=== PATIENT | female | born 2000 | race Two or more races ===

== ENCOUNTER 2024-07-21 00:52 | Emergency (ER) | payer SELFPAY ==
[2024-07-21 00:53] VITALS: BMI 22.5
[2024-07-21 01:02] VITALS: BP 109/66; PULSE 118; RESP 18; TEMP 37.7; O2SAT 99
--- NOTE | 2024-07-21 01:06 | PD.EDURI ---
Upper Respiratory Inf. RME/HPI General Chief Complaint: Flu Like Symptoms Stated Complaint: FLU LIKE SYMPTOMS, 18 WKS OB Time Seen by Provider: 07/21/24 00:57 Arrival date/time: 07/21/24 00:52 24 year old female present to emergency room with c/o of headache, sore throat, cough for 1 day. patient is currently 18 weeks , denies any vag bleeding, abd/back pain or UTI sx. Taken tylenol prior to arrival LOCATION: posterior oral pharynx SEVERITY: Symptoms are described as being severe with limitations on activities of daily living QUALITY: Symptoms are described as being dull or achy CONTEXT: The patient is unable to identify any inciting events. DURATION/TIMING: The symptoms started approximately one day ago and have been constant this then. ASSOCIATED SYMPTOMS: The patient is unable to identify any other associated symptoms. MODIFYING FACTORS: worse with swallowing PERTINENT ROS: denies any food or liquids getting stuck, denies any generalized weakness, denies any trauma, no chest pain, no abdominal pain, no rashes, no joint swelling no dysuria, urgency,frequency, REVIEW OF SYSTEMS: See History of Present Illness - with the exception of those mentioned in the history of present illness, all other systems reviewed and reported as negative GENERAL: In general the patient is awake, interactive, in an emergency department gurney. HEAD/EYES/EARS/NOSE/THROAT: normo-cephalic, atraumatic, mucus membranes are moist, anicteric, palpebral conjunctiva is pink, trachea is midline. CARDIOVASCULAR: regular rate and regular rhythm, no murmurs, heart sounds are not distant, strong pulses in all four extremities that are equal and symmetric bilateral upper and lower extremities, normal capillary refill. CHEST/PULMONARY: normal chest rise and fall, good air movement, clear to auscultation bilaterally, normal inspiratory to expiratory ratios without evidence of respiratory distress. NECK: No midline/Paraspinal tenderness, no step off ROM/Strenght intact No Kernig and bruzinski sign. No trauma ABDOMEN: soft, not tender, no masses appreciated BACK: normal range of motion without pain. NEUROLOGICAL: cranio-facial features are symmetric, moves all four extremities equally without obvious limitations or weakness. EXTREMITY: no tenderness to palpation over the long bones or large joints of the bilateral upper and lower extremities, no joint swelling, no joint erythema, no signs of trauma, no unilateral leg swelling and no peripheral edema. SKIN: warm, dry, well-perfused, no jaundice, no rash, no telangiectasias or petechia. PSYCH: calm, cooperative, no evidence of psychosis or agitation Related Data Previous Rx's ?Medication ?Instructions ?Recorded metoclopramide HCl 10 mg tablet 10 mg PO Q6H PRN nausea and 07/21/24 (Reglan) vomiting #30 tabs Allergies Allergy/AdvReac Type Severity Reaction Status Date / Time No Known Allergies Allergy Verified 07/21/24 00:57 Course Quality Measures none Orders Category Date Time Status Bedside COVID-19 Antigen Test NOW Care 07/21/24 01:05 Active Bedside Influenza A&B Antigen Test NOW Care 07/21/24 01:05 Completed IV [Insert IV] STAT Care 07/21/24 02:13 Active Throat Culture Stat Lab 07/21/24 01:09 Received Metoclopramide Inj [Reglan Inj] Med 07/21/24 02:00 Discontinued 10 mg IM X1 ONE Metoclopramide Inj [Reglan Inj] Med 07/21/24 02:03 Discontinued 10 mg IVP X1 ONE Metoclopramide [Reglan] Med 07/21/24 02:01 Discontinued 10 mg PO X1 ONE Sodium Chloride 0.9% 1000 ml [Ns] 1,000 ml Med 07/21/24 02:03 Discontinued IV 999 mls/hr Vital Signs Vital signs: Vital Signs Temperature 99.9 F 07/21/24 01:02 Pulse Rate 118 H 07/21/24 01:02 Respiratory Rate 18 07/21/24 01:02 Blood Pressure 109/66 07/21/24 01:02 Pulse Oximetry (%) 99 07/21/24 01:02 Oxygen Delivery Method Room Air 07/21/24 01:02 Upper Respiratory Infection Patient data External records reviewed:: [facility] previous records Clinical information provided by:: patient Social determinants that could affect healthcare access:: none Patient has the following chronic illnesses:: How is presenting disease/condition affected by chronic disease/condition?: exacerbated by Evaluation data The following diagnostics were reviewed and interpreted by me:: lab results Lab and/or radiology exams considered but not ordered:: n/a Interpretation Summary: flu/covid negative strep pending Medications / Prescriptions Medications or Prescriptions considered but not ordered:: n/a Medication administrations:: Medication Administration History Discontinued Medications Sodium Chloride (Ns) 1,000 mls @ 999 mls/hr IV .Q1H1M ONE Stop: 07/21/24 03:03 Last Infusion: 07/21/24 03:35 Dose: Infused Documented By: Admin: 07/21/24 02:27 Dose: 999 mls/hr Documented By: CVL Metoclopramide HCl (Metoclopramide Inj 5 Mg/Ml Vial 2 Ml) 10 mg IM X1 ONE; Protocol Stop: 07/21/24 02:01 Last Admin: 07/21/24 02:32 Dose: Not Given Documented By: CVL Non-Admin Reason: Cancelled by Provider Metoclopramide HCl (Metoclopramide 5 Mg Tablet) 10 mg PO X1 ONE Stop: 07/21/24 02:02 Last Admin: 07/21/24 02:32 Dose: Not Given Documented By: CVL Non-Admin Reason: Cancelled by Provider Metoclopramide HCl (Metoclopramide Inj 5 Mg/Ml Vial 2 Ml) 10 mg IVP X1 ONE; Protocol Stop: 07/21/24 02:04 Last Admin: 07/21/24 02:30 Dose: 10 mg Documented By: CVL as stated above Consultations Consultation(s) initiated? (list below): No Diagnosis Upper Respiratory Differential Diagnosis: upper respiratory infection, viral infection, bronchitis, influenza and pharyngitis Most likely diagnosis given after review of the tests above:: uri Admission Indicated Admission indicated?: not indicated Admission Request Was there a request for admission?: No Disposition Plan Disposition Plan: Discharge Discharge Attestation Discharge Attestation: The patient and all family members were given an opportunity to ask questions and understood the discharge instructions. Discharge instructions specifically effects, indications for sooner follow up or return to the emergency department, and the expected course of current diagnosis. Patient condition: Stable Discharge Plan Plan Patient Disposition: HOME (Self Care) Health Concerns: Follow up with OB as directed Return to ED if symptoms worsen Prescriptions/Referrals Prescriptions/Med Rec: New metoclopramide HCl [Reglan] 10 mg tablet 10 mg PO Q6H PRN (Reason: nausea and vomiting) Qty: 30 0RF Problem List Clinical Impression: Upper respiratory infection, Patient/Caregiver Discharge Instructions Education Materials: Preg 2nd Trimester, ED URI, Viral, No Abx (Adult) Print Language: [place] Citizen Stand Alone Forms: [facility] [employer] [facility] Info., Patient Portal Info Letter
[2024-07-21] MEDS: SODIUM CHLORIDE 0.9% 1000 ML 1,000 ML 999 ML IV (02:27)
[2024-07-21] MEDS: METOCLOPRAMIDE INJ 5 MG/ML VIAL 2 ML 10 MG IVP (02:30)
[2024-07-21 03:37] VITALS: PULSE 90; RESP 16; O2SAT 100
== END 2024-07-21 03:38 | disposition home or self-care (01) ==
LOC: SERX 04:21
PROVIDERS: Emergency Provider Emergency Medicine
DX: O99.512 Diseases of the respiratory system complicating pregnancy, second trimester (principal); J06.9 Acute upper respiratory infection, unspecified; Z3A.18 18 weeks gestation of pregnancy
CPT/HCPCS: 87070; 87400; 87811; 96361; 96374; 99284; J2765; J7030

== ENCOUNTER 2024-11-06 19:50 | Emergency (ER) | payer MEDICAID, SELFPAY ==
[2024-11-06 20:52] VITALS: BP 129/77; PULSE 84; RESP 18; TEMP 37.1; O2SAT 98; BMI 26.0
--- NOTE | 2024-11-06 21:10 | PD.EDRME ---
Rapid Medical Screening Exam [facility] Arrival date/time: 11/06/24 19:50 24F with no significant PMH presents to ED with 1 week of itchiness and 2 days of N/V. Patient is taking Diclegis w/o relief. Patient is also 35 weeks . Chief Complaint: Nausea/Vomiting/Diarrhea Vital signs: Vital Signs Temperature 98.7 F 11/06/24 20:52 Pulse Rate 84 11/06/24 20:52 Respiratory Rate 18 11/06/24 20:52 Blood Pressure 129/77 11/06/24 20:52 Pulse Oximetry (%) 98 11/06/24 20:52 Oxygen Delivery Method Room Air 11/06/24 20:52
[2024-11-06] MEDS: DEXAMETHASONE SOD PHOS INJ 10 MG/ML VIAL PO (21:21)
[2024-11-06] MEDS: METOCLOPRAMIDE 5 MG TABLET 10 MG PO (21:21)
[2024-11-06 21:34] LABS: Basophils # (Auto) 0.0 Thou/mm3 (0.0-0.2); Basophils % (Auto) 0 % (0-2.5); Eosinophils # (Auto) 0.0 Thou/mm3 (0.0-0.5); Eosinophils % (Auto) 0 % (0-10); Hematocrit 32.6 % (36.0-46.0); Hemoglobin 11.4 g/dL (12.0-16.0); Immature Granulocytes Auto 0.02 Thou/mm3 (0.00-0.00); Lymphocytes # (Auto) 2.0 Thou/mm3 (1.0-4.8); Lymphocytes % (Auto) 25 % (10-50); Mean Corpuscular HGB Conc 35.0 g/dl (31.0-37.0); Mean Corpuscular Hemoglobin 31.7 pg (25.0-35.0); Mean Corpuscular Volume 91 fL (80-100); Monocytes # (Auto) 0.5 Thou/mm3 (0.0-0.8); Monocytes % (Auto) 6 % (0-12); Neutrophils # (Auto) 5.4 Thou/mm3 (1.8-7.7); Neutrophils % (Auto) 68 % (37-80); Nucleated Red Blood Cell # 0.00 Thou/mm3 (0.00-0.00); Nucleated Red Blood Cell % 0 /100 WBC (0); Platelet Count 185 Thou/mm3 (140-440); RDW Standard Deviation 40.8 fL (36.4-46.3); Red Blood Count 3.60 Miln/mm3 (4.00-5.20); White Blood Count 7.9 Thou/mm3 (3.6-11.0)
[2024-11-06 21:58] LABS: Alanine Aminotransferase 104 U/L (10-49); Albumin, Serum 3.8 gm/dL (3.5-5.0); Albumin/Globulin Ratio 1.4 (1.2-2.2); Alkaline Phosphatase 195 U/L (46-116); Anion Gap 12 (7-16); Aspartate Amino Transferase 68 U/L (0-34); BUN/Creatinine Ratio 10 Ratio (12-20); Bilirubin,Total 0.6 mg/dL (0.3-1.2); Blood Urea Nitrogen < 5 mg/dL (9-23); Calcium 9.1 mg/dL (8.3-10.6); Calcium (Corrected) 9.3 mg/dL (8.5-10.1); Carbon Dioxide 21.5 mMol/L (20.0-31.0); Chloride 105 mMol/L (98-107); Creatinine (Component) 0.5 mg/dL (0.6-1.3); Estimated Creatinine Clearance 188.5 mL/min (>60); Globulin 2.8 gm/dL (2.3-3.5); Glucose 83 mg/dL (74-106); Lipase 27 U/L (12-53); Osmolality,Calculated 271 (275-295); Potassium 3.7 mMol/L (3.4-5.1); Sodium 138 mMol/L (136-145); Total Protein 6.6 gm/dL (5.7-8.2); eGFR > 60 See Note
[2024-11-06 22:20] LABS: Collection Type, Urine Clean Catch
[2024-11-06 22:33] LABS: Amorphous Crystals,Urine Present (Absent); Bacteria,Urine 4+; Bilirubin,Urine Negative (Negative); Blood,Urine Negative (Negative); Clarity,Urine Turbid (Clear/Hazy); Color,Urine Yellow (Lt Yel-Yel); Glucose, Urine Negative (Negative); Hyaline Casts,Urine < 1 /hpf (0-1); Ketones,Urine 3+ (Negative); Leukocyte Esterase,Urine Negative (Negative); Nitrite,Urine Negative (Negative); PH,Urine 7.5 (5.0-7.0); Protein,Urine 1+ (Neg - Trace); RBC,Urine 3 /hpf (0-3); Specific Gravity,Urine 1.017 (1.001-1.035); Squamous Epithelial Cell,Urine 7 /hpf (0-5); Urobilinogen,Urine 2.0 mg/dL (0.0-1.0); WBC,Urine 8 /hpf (0-5)
[2024-11-06 22:34] LABS: Culture Indicated,Urine Yes
[2024-11-06 22:36] LABS: Amphetamine/Methamp Scrn,U Negative (Negative); Barbiturate Screen,Urine Negative (Negative); Benzodiazepines Screen,Urine Negative (Negative); Benzoylecgonine Screen, Ur Negative (Negative); Fentanyl Screen,Urine Negative (Negative); Opiate Screen,Urine Negative (Negative); THC Screen,Urine Negative (Negative)
[2024-11-07 00:04] VITALS: BP 124/71; PULSE 80; RESP 16; TEMP 37; O2SAT 97
--- NOTE | 2024-11-07 01:01 | EDNOTE_ITS ---
Nausea/Vomit./Diarrhea-RME/HPI General Chief complaint: Nausea/Vomiting/Diarrhea Stated complaint: VOMITING, ITCHING Arrival date/time: 11/06/24 19:50 Limitations: no limitations RME / HPI RME / HPI Narrative: 11/06/24 19:50 24F with no significant PMH presents to ED with 1 week of itchiness and 2 days of N/V. Patient is taking Diclegis w/o relief. Patient is also [address] Avila?s Main ED Evaluation: 24yo female presenting with several bouts of nonbloody emesis ~24 hours. Also complains of generalized pruritis without rash or allergen exposure. No diarrhea or fever. No dysuria, but reports baseline frequency. EGA 36 weeks. Denies flu-like illness. PMH include gestational DM and anemia. PSH unremarkable. Related Data Previous Rx's ?Medication ?Instructions ?Recorded metoclopramide HCl 10 mg tablet 10 mg PO Q6H PRN nause a and 07/21/24 (Reglan) vomiting #30 tabs loratadine 10 mg tablet 10 mg PO QDAY PRN pruritis # 20 tabs 11/07/24 metoclopramide HCl 10 mg tablet 10 mg PO Q8H PRN nause a and 11/07/24 (Reglan) vomiting #20 tabs nitrofurantoin macrocrystal 100 mg 100 mg PO BID #14 c aps 11/07/24 capsule Allergies Allergy/AdvReac Type Severity Reaction Status Date / Time No Known Allergies Allergy Verified 11/06/24 19:51 Review of Systems Review of Systems Systems Reviewed: All systems reviewed, normal except as documented Past Medical History Surgical History OTHER SURGICAL HX: Noncontributory Social History SMOKING STATUS: Never smoker ED Exam Narrative Physical exam: GENERAL APPEARANCE: alert and oriented x 4, well-developed, well-nourished, nontoxic, no acute distress VITALS: All vitals were reviewed and the pulse ox is 97% on room air, which is normal according to my interpretation. HEENT: Normocephalic, atraumatic; pupils equal, round, reactive to light; EOMI; mucous membranes pink, moist; oropharynx clear NECK: Supple LUNGS: CTABL; no wheezes, no rales, no rhonchi HEART: Regular rate, regular rhythm; normal S1, S2; no murmurs ABDOMEN: non distended; normal BS; soft, no tenderness, no guarding, no rebound; 36cm fundal height, noted movement on palpation of uterus BACK: no CVA tenderness EXTREMITIES: atraumatic; no edema NEUROLOGIC: awake; alert and oriented x4; cranial nerves II-XII grossly intact; no focal sensory or motor deficits PSYCHIATRIC: appropriate mood and affect SKIN: warm, dry, normal color; no rashes General Limitations: Present no limitations General appearance: Present alert and in no apparent distress Head Head exam: Present atraumatic Eye Eye exam: Present normal appearance, PERRL and EOMI ENT ENT exam: Present normal exam, normal oropharynx and mucous membranes moist Neck Neck exam: Present normal inspection, full ROM and trachea midline Chest Chest inspection: Present normal inspection and symmetric chest wall rise Respiratory Respiratory exam: Present normal lung sounds bilaterally Cardiovascular Cardiovascular exam: Present regular rate, normal rhythm and normal heart sounds Abdominal Exam Abdominal exam: Present soft and normal bowel sounds Extremities Exam Extremities exam: Present normal inspection and full ROM Back Exam Back exam: Present normal inspection and full ROM Neurological Exam Neurological exam: Present alert, oriented X3 and CN II-XII intact Psychiatric Psychiatric exam: Present normal affect and normal mood Skin Skin exam: Present warm, dry, intact and normal color Course Quality Measures none Orders Category Date Time Status CBC Stat Lab 11/06/24 21:23 Completed CMP [Comprehensive Metabolic Panel] Stat Lab 11/06/24 21:23 Completed Drug Screen,Urine Stat Lab 11/06/24 21:37 Completed Lipase Stat Lab 11/06/24 21:23 Completed Urinalysis, C/S if Indicated Stat Lab 11/06/24 21:37 Completed Urine Culture Stat Lab 11/06/24 21:37 Received Dexamethasone Inj [Decadron Inj] Med 11/06/24 21:09 Discontinued 10 mg PO X1 ONE Metoclopramide [Reglan] Med 11/06/24 21:09 Discontinued 10 mg PO X1 ONE Ringers Lactated 1000 ml [Lactated Ringers] 1,000 ml Med 11/07/24 01:03 Discontinued IV 999 mls/hr cefTRIAXone [Rocephin] 1,000 mg Med 11/07/24 01:29 Discontinued Lidocaine 1% 20 ml [Xylocaine 1% 20 ML] 2.1 ml IM X1 cefTRIAXone/D5w 1gm IV premix [Rocephin/D5w 1gm IV Med 11/07/24 01:04 Discontinued premix] 1 gm in 50 ml IV X1 lorataDINE [Claritin] Med 11/07/24 01:28 Discontinued 10 mg PO X1 ONE Vital Signs Vital signs: Vital Signs Temperature 98.7 F 11/06/24 20:52 Pulse Rate 84 11/06/24 20:52 Respiratory Rate 18 11/06/24 20:52 Blood Pressure 129/77 11/06/24 20:52 Pulse Oximetry (%) 98 11/06/24 20:52 Oxygen Delivery Method Room Air 11/06/24 20:52 Nausea/Vomiting/Diarrhea MDM Narrative MDM Narrative:: Scribe Attestation: 11/07/24 - Razia Ochoa am scribing for and in the presence of Dr. Avila. 24yo female presenting with several bouts of nonbloody emesis ~24 hours. Also complains of generalized pruritis without rash or allergen exposure. Please see PE findings. Lab markers noting mild anemia, no thrombocytopenia. Chemistries demons normal glucose, mildly elevated transaminase/alkaline phosphatase. normal total biliribun. UA remarkable for infection. Patient likely experiencing secondary to accumulation of bile salts. No signs of obstructive jaundice. Will treat empirically with loratidine and recommend outpatient NST and biophysical profile. Close OB follow-up recommended. Precaution instructions issued. Patient data External records reviewed:: [facility] previous records (Per chart review, patient was seen here on 07/21/24 for .) Clinical information provided by:: patient Social determinants that could affect healthcare access:: none Patient has the following chronic illnesses:: none How is presenting disease/condition affected by chronic disease/condition?: no chronic disease Evaluation data The following diagnostics were reviewed and interpreted by me:: lab results Lab and/or radiology exams considered but not ordered:: none Interpretation Summary: See MDM. Medications / Prescriptions Medications / Prescriptions considered but not ordered:: none Medication administrations:: Medication Administration History Discontinued Medications Ceftriaxone Sodium 1,000 mg/ (Lidocaine HCl 2.1 ml) 0 mg IM X1 ONE Stop: 11/07/24 01:30 Last Admin: 11/07/24 01:44 Dose: 1,000 mg Documented By: CVL Dexamethasone Sodium Phosphate (Dexamethasone Sod Phos Inj 10 Mg/Ml Vial) 10 mg PO X1 ONE Stop: 11/06/24 21:10 Last Admin: 11/06/24 21:21 Dose: 10 mg Documented By: JAY Lactated Ringer's (Lactated Ringers) 1,000 mls @ 999 mls/hr IV .Q1H1M ONE Stop: 11/07/24 02:03 Last Admin: 11/07/24 01:30 Dose: Not Given Documented By: PATRICIA Non-Admin Reason: Discontinued Ceftriaxone Sodium/Dextrose (Rocephin/D5w 1gm Iv Premix) 1 gm in 50 mls @ 100 mls/hr IV X1 ONE Stop: 11/07/24 01:33 Last Admin: 11/07/24 01:30 Dose: Not Given Documented By: PATRICIA Non-Admin Reason: Discontinued Loratadine (Loratadine 10 Mg Tablet) 10 mg PO X1 ONE Stop: 11/07/24 01:29 Last Admin: 11/07/24 01:44 Dose: 10 mg Documented By: CVL Metoclopramide HCl (Metoclopramide 5 Mg Tablet) 10 mg PO X1 ONE Stop: 11/06/24 21:10 Last Admin: 11/06/24 21:21 Dose: 10 mg Documented By: JAY see above Consultations Consultation(s) initiated? (list below): No Diagnosis Nausea Differential Diagnosis: food poisoning, gastroenteritis, dehydration and other (electrolyte abnormality, UTI, vomiting in , rash, pruritis) Most likely diagnosis given after review of the tests above:: see clinical impression below Admission Indicated Admission indicated?: not indicated Admission Request Was there a request for admission?: No Disposition Plan Disposition Plan: Discharge Discharge Attestation Discharge Attestation: The patient and all family members were given an opportunity to ask questions and understood the discharge instructions. Discharge instructions specifically effects, indications for sooner follow up or return to the emergency department, and the expected course of current diagnosis. Patient condition: Stable Discharge Plan Plan Patient Disposition: HOME (Self Care) Discharge Disposition comment: Stable Prescriptions/Referrals Prescriptions/Med Rec: New loratadine 10 mg tablet 10 mg PO QDAY MDD 10 mg PRN (Reason: pruritis) Qty: 20 0RF metoclopramide HCl [Reglan] 10 mg tablet 10 mg PO Q8H PRN (Reason: nausea and vomiting) Qty: 20 0RF nitrofurantoin macrocrystal 100 mg capsule 100 mg PO BID Qty: 14 0RF Rx Instructions: must administer with a meal/food No Action metoclopramide HCl [Reglan] 10 mg tablet 10 mg PO Q6H PRN (Reason: nausea and vomiting) Qty: 30 0RF Referrals: No Primary/Family,Physician [Primary Care Provider] - In 1 week Problem List Clinical Impression: Dehydration, Urinary tract infection during , Cholestasis during in third trimester Patient/Caregiver Discharge Instructions Discharge Activity: activity as tolerated Education Materials: Urinary Tract Infections in Women, ED Dehydration (Adult) Additional Instructions: For fluids. Medications as directed. Follow-up with [facility] physician for NST/BPP and recheck liver function test in 1 week. Return for fever persistent vomiting or worsening illness. Print Language: Y[place] Stand Alone Forms: [employer] Info., Patient Portal Info Letter
[2024-11-07] MEDS: cefTRIAXone 1,000 MG, LIDOCAINE 1% 20 ML 2.1 ML IM (01:44)
== END 2024-11-07 01:48 | disposition home or self-care (01) ==
PROVIDERS: Physician Assistant; Emergency Provider Emergency Medicine
DX: O99.283 Endocrine, nutritional and metabolic diseases complicating pregnancy, third trimester (principal); O23.43 Unspecified infection of urinary tract in pregnancy, third trimester; E86.0 Dehydration; N39.0 Urinary tract infection, site not specified; O26.643 Intrahepatic cholestasis of pregnancy, third trimester; Z3A.36 36 weeks gestation of pregnancy
CPT/HCPCS: 36415; 80053; 80307; 81001; 83690; 85025; 87086; 96372; 99283; J0696; J1100; J3490; A9270

== ENCOUNTER 2024-11-23 08:04 | Inpatient (IN) | payer MEDICAID, SELFPAY ==
[2024-11-23] VITALS (13 sets, daily range): BP systolic 115–148; BP diastolic 69–91; PULSE 59–95; RESP 13–99; TEMP 36.3–36.8; O2SAT 95–99; BMI 26.4
[2024-11-23] MEDS: RINGERS LACTATED 1000 ML 1,000 ML 999 ML IV (09:00)
--- NOTE | 2024-11-23 09:05 | PD.LDHP ---
Documentation for date of: 11/23/24 OB Labor/Induct. HPI History of Present Illness Chief complaint: Vaginal bleeding and abdominal pain : 1 Para: 0 NOÉ: 12/17/24 Gestational Age (weeks): 36 Gestational Age (days): 4 History of present illness: 24-year-old 1 para 0 with intrauterine at 36 weeks and 4 days by history with undocumented care presents to maternal infant unit complaining of vaginal bleeding and abdominal pain starting at 0700 today. She has contractions every 1 minute on the external monitor with cervical exam 1/60%/-3/vertex/I with vaginal bleeding noted. Abdomen is tense between contractions. Patient reports 8 out of 10 pain. Has care with Dr. Rider which is undocumented at this time reports no history of placenta previa. She had a visit last week and her care started in the first trimester. Denies any problem in her History of Present Dating criteria: other Obstetrical complications: none Medical complications: none Review of Systems Review of Systems Narrative Review of Systems: Denies any chest pain palpitations cough fever shortness of breath or lower extremity pain denies any headache change in vision or right upper quadrant pain Past Medical History Social History SOCIAL: Denies any alcohol drug use or smoking. Agrees with blood transfusion if necessary. Meds Home Medications and Allergies Allergies Allergy/AdvReac Type Severity Reaction Status Date / Time No Known Allergies Allergy Verified 11/06/24 19:51 OB Exam Physical Exam Vital signs: Pulse BP 95 124/80 11/23/24 08:18 11/23/24 08:18 Routine HEENT Exam Comments: Within normal limits Routine Respiratory Exam Comments: Clear to auscultation bilaterally Routine Cardiovascular Exam Comments: Regular rate and rhythm Routine Abdominal Exam Comments: Gravid consistent with 36 weeks gestation Routine Exam Comments: See RN notes Detailed Labor and Delivery Exam Comments: See RN notes Routine Extremities Exam Comments: Nontender Routine Skin Exam Comments: No gross rashes or lesions Routine Neurological Exam Comments: No deficits Routine Psychiatric Exam Comments: Alert and oriented OB Results Impressions Impression: IUP 36 weeks 4 days by history (undocumented care) labor Placental abruption Third trimester vaginal bleeding Emergency delivery Informed consent was obtained. The patient was made aware of the risk complications alternative benefits of the proposed procedure and she agrees.
[2024-11-23] MEDS: FAMOTIDINE INJ 10 MG/ML VIAL 2 ML 20 MG IV (09:29)
[2024-11-23] MEDS: ceFAZolin/D5W 2 GM IV 2 GM/100 ML BAG IV (09:29)
[2024-11-23] MEDS: CITRIC ACID/SODIUM CITR 15 ML UDC (BICITRA) 30 ML PO (09:29)
--- NOTE | 2024-11-23 09:41 | ESOP_ITS ---
Operative Note - [employer] Procedure Date of procedure: 11/23/24 Procedure Performed: Primary Low Transverese Section via Pfanensteil skin incision Indication: IUP 36w4d by history Third trimester vaginal bleeding Placental abruption Peterm Labor Pre-Op diagnosis: IUP 36w4d by history Third trimester vaginal bleeding Placental abruption Peterm Labor Post-Op diagnosis: IUP 36w4d by history Third trimester vaginal bleeding Placental abruption Peterm Labor Anesthesia type: Spinal Procedure description: After proper informed consent was obtained and the patient was made aware of the risks, complications, alternatives and benefits of the proposed procedure she was taken to the operating room where she underwent induction of spinal anesthesia. She was prepped and draped in the usual sterile fashion. A timeout was performed.? A Pfannenstiel skin incision was made with the scalpel and carried through to the underlying layer of fascia with the Bovie. The fascia was nicked in the midline incision and the incision was extended bilaterally with the Bovie. The inferior aspect of the fascial incision was grasped with Mary clamps elevated and the underlying rectus muscle dissected off with the Bovie. The superior aspect the fascial incision was grasped with Mary clamps elevated and the underlying rectus muscle dissected off with the Bovie. The rectus muscles were in the midline. The peritoneum was grasped between 2 Burton clamps and entered sharply with the Metzenbaum scissors. The peritoneum was extended superiorly and inferiorly with good visualization of the bladder. The vesicouterine peritoneum was incised transversely and the bladder flap created digitally. A Hilary blade was inserted. A low transverse incision was made in the uterus with a scapel and the incision was extended digitally. The 's head delivered and the mouth and nose were suctioned with the bulb suction. The shoulder and body delivered atraumatically. The cord was clamped after 30 second delayed cord clamping and the cord was cut.? The female was handed off to the waiting Pediatric staff, cord blood was collected for lab testing. The placenta was removed complete and intact. Partial placenta abruption noted. Thick meconium stained amniotic fliud noted. The uterus was exteriorized and cleared of all clots and debris. The uterus was initially atonic but responded to uterotonics. The uterine incision was closed with #1-0 chromic catgut suture in a running interlocking fashion. A second layer of the same suture was used to imbricate the first layer and obtain excellent hemostasis. The vesicouterine peritoneum was closed with 2-0 chromic catgut suture in a running fashion. The firm uterus was returned to the abdomen. The gutters were cleared of all clots and debris. The peritoneum was closed with 0 chromic catgut suture in running fashion. The rectus muscle was closed with 0 chromic catgut suture. The fascia was closed with 0 Vicryl beginning at each angle and ending in the center in a running fashion. The subcutaneous tissue was irrigated with warmed normal saline solution and found to be hemostatic. The subcutaneous tissue was closed with 2-0 chromic catgut suture in a running fashion. The skin was closed with 4-0 Monocryl. A Dermabond Prineo dressing was applied and a sterile pressure dressing was applied.? She tolerated the procedure well. Counts were correct. I discussed with the patient the nature of her condition, intraoperative findings and expectation for recovery all? questions answered. Specimen: none Estimated blood loss (ml): 700 Findings: Viable female infant 7lbs 7 oz. Thick meconium stained amniotic fluid Placental abruption 8 and 9. Cephalic. Normal appearing uterus, ovaries and tubes Uterus initially atonic but responded to uterotonics. Complications: other (Uterine atony) Surgical staff Ada Dupont CRNA Operation Date: 11/23/24 09:45 <No data on this case meets the specified criteria> Diagnosis Problem List Completed Was Problem List Reviewed/Reconciled?: Yes
--- NOTE | 2024-11-23 09:42 | ESDS_ITS ---
DS: Providers Provider Date of admission: 11/23/24 08:04 Primary care physician: Physician No Primary/Family Admitting Provider: Colby Manuel MD Attending Provider on Admission: Colby Manuel MD Attending Provider on DC: Colby Manuel MD Discharging Provider: Colby Manuel MD DS: Diagnosis Problem List Completed Was Problem List Reviewed/Reconciled?: Yes Summary/Hosp Course Brief History: 24-year-old 1 para 0 with intrauterine at 36 weeks and 4 days by history with undocumented care presents to maternal infant unit complaining of vaginal bleeding and abdominal pain starting at 0700 today. She has contractions every 1 minute on the external monitor with cervical exam 1/60%/-3/vertex/I with vaginal bleeding noted. Abdomen is tense between contractions. Patient reports 8 out of 10 pain. Has care with Dr. Rider which is undocumented at this time reports no history of placenta previa. She had a visit last week and her care started in the first trimester. Denies any problem in her Peripartum Data Delivery Method: Low Transverse Procedures: Procedures Operation Date: 11/23/24 09:45 <No data on this case meets the specified criteria> 1: Gender: Female Disposition of : home Time Spent with Patient Time attestation: Total time spent providing and/or coordinating discharge services: Exam Vital Signs Pulse BP 95 124/80 11/23/24 08:18 11/23/24 08:18 Discharge Plan Plan Patient Disposition: HOME (Self Care) Patient condition on transfer: Stable Prescriptions/Referrals Prescriptions/Med Rec: New ibuprofen 800 mg tablet 800 mg PO Q6H PRN (Reason: pain) Qty: 30 0RF hydrocodone-acetaminophen 5-325 mg tablet 1 tab PO Q6H MDD 4 PRN (Reason: pain) Qty: 20 0RF No Action metoclopramide HCl [Reglan] 10 mg tablet 10 mg PO Q6H PRN (Reason: nausea and vomiting) Qty: 30 0RF loratadine 10 mg tablet 10 mg PO QDAY MDD 10 mg PRN (Reason: pruritis) Qty: 20 0RF metoclopramide HCl [Reglan] 10 mg tablet 10 mg PO Q8H PRN (Reason: nausea and vomiting) Qty: 20 0RF nitrofurantoin macrocrystal 100 mg capsule 100 mg PO BID Qty: 14 0RF Rx Instructions: must administer with a meal/food Referrals: No Primary/Family,Physician [Primary Care Provider] - Patient/Caregiver Discharge Instructions Discharge Activity: activity as tolerated Other Discharge Activity Instructions:: Follow up with Dr Rider in 1 week. Education Materials: C Section Dc Print Language: Korean Stand Alone Forms: Lyndsey Award Info., Patient Portal Info Letter Planned Discharge Date 11/25/24
[2024-11-23 09:43] LABS: Basophils # (Auto) 0.0 Thou/mm3 (0.0-0.2); Basophils % (Auto) 0 % (0-2.5); Eosinophils # (Auto) 0.0 Thou/mm3 (0.0-0.5); Eosinophils % (Auto) 0 % (0-10); Hematocrit 34.4 % (36.0-46.0); Hemoglobin 11.9 g/dL (12.0-16.0); Immature Granulocytes Auto 0.03 Thou/mm3 (0.00-0.00); Lymphocytes # (Auto) 1.7 Thou/mm3 (1.0-4.8); Lymphocytes % (Auto) 19 % (10-50); Mean Corpuscular HGB Conc 34.6 g/dl (31.0-37.0); Mean Corpuscular Hemoglobin 31.1 pg (25.0-35.0); Mean Corpuscular Volume 90 fL (80-100); Monocytes # (Auto) 0.6 Thou/mm3 (0.0-0.8); Monocytes % (Auto) 7 % (0-12); Neutrophils # (Auto) 6.8 Thou/mm3 (1.8-7.7); Neutrophils % (Auto) 74 % (37-80); Nucleated Red Blood Cell # 0.00 Thou/mm3 (0.00-0.00); Nucleated Red Blood Cell % 0 /100 WBC (0); Platelet Count 165 Thou/mm3 (140-440); RDW Standard Deviation 40.9 fL (36.4-46.3); Red Blood Count 3.83 Miln/mm3 (4.00-5.20); White Blood Count 9.2 Thou/mm3 (3.6-11.0)
[2024-11-23 11:18] LABS: Alanine Aminotransferase 74 U/L (10-49); Albumin, Serum 3.4 gm/dL (3.5-5.0); Albumin/Globulin Ratio 1.5 (1.2-2.2); Alkaline Phosphatase 290 U/L (46-116); Anion Gap 13 (7-16); Aspartate Amino Transferase 45 U/L (0-34); BUN/Creatinine Ratio 10 Ratio (12-20); Bilirubin,Total 0.5 mg/dL (0.3-1.2); Blood Urea Nitrogen < 5 mg/dL (9-23); Calcium 9.6 mg/dL (8.3-10.6); Calcium (Corrected) 10.1 mg/dL (8.5-10.1); Carbon Dioxide 19.8 mMol/L (20.0-31.0); Chloride 107 mMol/L (98-107); Creatinine (Component) 0.5 mg/dL (0.6-1.3); Estimated Creatinine Clearance 183.7 mL/min (>60); Globulin 2.3 gm/dL (2.3-3.5); Glucose 82 mg/dL (74-106); LDH (Lactate Dehydrogenase) 224 U/L (120-246); Osmolality,Calculated 275 (275-295); Potassium 4.0 mMol/L (3.4-5.1); Sodium 140 mMol/L (136-145); Total Protein 5.7 gm/dL (5.7-8.2); eGFR > 60 See Note
[2024-11-23 11:27] LABS: Uric Acid 4.7 mg/dL (3.1-7.8)
[2024-11-23] MEDS: KETOROLAC INJ 30 MG/ML VIAL IVP (12:21)
[2024-11-23 12:51] LABS: Fibrinogen 600 mg/dL (175-375); INR 0.9 (0.9-1.3); Partial Thromboplastin Time 25.8 Seconds (22.0-36.0); Prothrombin Time 10.2 Seconds (9.0-12.2)
[2024-11-23 13:45] LABS: Amphetamine/Metham Scrn,Ur OB Negative (Negative); Benzoylecgonine Screen, Ur OB Negative (Negative); Opiate Screen,Urine OB Negative (Negative); THC Screen,Urine OB Negative (Negative)
[2024-11-23] MEDS: OXYTOCIN in NS 20 units 20 UNIT/1,000 ML BAG 125 UNIT IV (14:10)
[2024-11-23 14:43] LABS: Bilirubin,Urine Negative (Negative); Blood,Urine Negative (Negative); Clarity,Urine Clear (Clear/Hazy); Collection Type, Urine Clean Catch; Color,Urine Lt-Yellow (Lt Yel-Yel); Glucose, Urine Negative (Negative); Ketones,Urine 1+ (Negative); Leukocyte Esterase,Urine Negative (Negative); Nitrite,Urine Negative (Negative); PH,Urine 7.5 (5.0-7.0); Protein,Urine Negative (Neg - Trace); RBC,Urine 4 /hpf (0-3); Specific Gravity,Urine 1.009 (1.001-1.035); Squamous Epithelial Cell,Urine < 1 /hpf (0-5); Urobilinogen,Urine Negative mg/dL (0.0-1.0); WBC,Urine < 1 /hpf (0-5)
--- NOTE | 2024-11-23 16:21 | PD.LDDELS ---
Data ([facility]) Data Hx Section: No : 1 Term: 0 Delivery Data ([facility]) Labor Data Initiation of labor: Spontaneous Induction/Augmentation Agent: None ROM date: 11/23/24 ROM time: : Amniotic membrane rupture type: Artificial Amniotic fluid description: Moderate Meconium Delivery Data EDC: 12/17/24 EDC calculated by:: other Onset of labor date: 11/23/24 Onset of labor time: 07:00 [place] delivery date: 11/23/24 [place] delivery time: :55 Gestational age (weeks): 36 Gestational age (days): 4 Placenta delivery date: 11/23/24 Placenta delivery time: Delivered by: GEILING Delivery nurse: CHONG Mora nurse: SHAYY Cigarette Examiner at delivery: No Support person(s) at delivery: FOB Other staff at delivery: MD KELSY FENTON CRNA, RAMRODNEY TECH, BANDAR WEAVER Delivery Method Delivery method: Low Transverse Presentation: Vertex Anesthesia Type Anesthesia Type: Spinal Anesthesia type: Spinal Placenta Placenta delivery description: Manual Removal Cord blood sent to lab: Yes cord blood collection: Cord Blood Type Episiotomy Episiotomy description: None EBL Estimated blood loss (ml): 700 Umbilical Cord cord description: 3 Vessels Complications Complications: Uterine atony [place] Data ([facility]) Data order: 1 [place]'s gender: Female weight (gms): 7 lb 7.438 oz Weight (pounds): 7 lbs and 7.4 ozs 1 minute: 8 5 minutes: 9
[2024-11-23 17:16] LABS: Basophils # (Auto) 0.0 Thou/mm3 (0.0-0.2); Basophils % (Auto) 0 % (0-2.5); Eosinophils # (Auto) 0.0 Thou/mm3 (0.0-0.5); Eosinophils % (Auto) 0 % (0-10); Hematocrit 34.8 % (36.0-46.0); Hemoglobin 12.2 g/dL (12.0-16.0); Immature Granulocytes Auto 0.06 Thou/mm3 (0.00-0.00); Lymphocytes # (Auto) 1.2 Thou/mm3 (1.0-4.8); Lymphocytes % (Auto) 9 % (10-50); Mean Corpuscular HGB Conc 35.1 g/dl (31.0-37.0); Mean Corpuscular Hemoglobin 31.2 pg (25.0-35.0); Mean Corpuscular Volume 89 fL (80-100); Monocytes # (Auto) 0.6 Thou/mm3 (0.0-0.8); Monocytes % (Auto) 5 % (0-12); Neutrophils # (Auto) 11.8 Thou/mm3 (1.8-7.7); Neutrophils % (Auto) 86 % (37-80); Nucleated Red Blood Cell # 0.00 Thou/mm3 (0.00-0.00); Nucleated Red Blood Cell % 0 /100 WBC (0); Platelet Count 164 Thou/mm3 (140-440); RDW Standard Deviation 39.5 fL (36.4-46.3); Red Blood Count 3.91 Miln/mm3 (4.00-5.20); White Blood Count 13.7 Thou/mm3 (3.6-11.0)
[2024-11-23 20:07] LABS: Hepatitis B Surface Antigen Non Reactive (Non React); Rubella, IgG Antibody Reactive (Immune)
[2024-11-23 20:09] LABS: Syphilis Nonreactive (Nonreactive)
[2024-11-23] MEDS: IBUPROFEN TAB 400 MG TABLET 800 MG PO (23:06)
[2024-11-24 03:32] VITALS: BP 104/66; PULSE 71; RESP 14; TEMP 36.4; O2SAT 97
[2024-11-24 07:48] LABS: Chlamydia trachomatis PCR Negative (Not Detect); Neisseria Gonorrhoeae DNA PCR Negative (Not Detect); Trichomonas Negative (Negative)
[2024-11-24 08:00] VITALS: BP 139/84; PULSE 70; RESP 18; TEMP 36.8; O2SAT 98
[2024-11-24] MEDS: HYDROcodone/APAP 5/325 TABLET 2 TAB PO (08:16)
--- NOTE | 2024-11-24 09:27 | PC.SS ---
FAMILY MEDIATOR and student conducted bedside contact with the patient to address nursing referral indicating patient possessed a history of THC use. FAMILY MEDIATOR and student introduced self and role.? At bedside with patient was Joe HAAS.? Patient gave permission for FOB to be present during discussion.? Patient confirmed approximately two years ago. Toxicology Report upon current admission negative for THC. Patient informed SS plan to continue abstaining from THC use. Patient resides with parents and FOB. , Paty; is the patient?s first child. Infant delivered via . Patient plans on the infant. Patient reports participating with care within appropriate time frame of confirmation. ?OB services were provided by Delfina Rider at [facility] in [place]. Patient has relocated to [place] so pediatric services will be obtained locally. Patient reports consistency with OB appointments. Patient denies HX of Mental health.? Patient is receiving WIC. Patient denies history of alcohol/drug abuse.? Patient denies episodes of domestic violence.? Patient has access to appropriate supplies and equipment.?FOB will provide transportation upon discharge. ?Patient describes possessing support system consisting of FOB and family. FAMILY MEDIATOR and student provided community resources to include [employer] and [employer] Network.?Student observed the patient to be responsive and engaged with SS team throughout discussion. No further intervention required at this time, social services analyst would be available to address any further concerns.? FAMILY MEDIATOR updated bedside nurse.?
--- NOTE | 2024-11-24 10:46 | PD.LDPPPRG ---
Subjective Subjective Interval history: Delivery type: for placental abruption at 36 weeks and 4 days, presumptive cholestasis still symptomatic Patient doing well this morning. No acute complaints. Ambulating, tolerating p.o. and voiding without difficulty. HTN/Pre-Eclampsia screen: No chest pain, shortness of breath, headache, visual changes, epigastric or right upper quadrant pain. Breast-feeding, lochia diminishing. Bowel: Flatus+/ BM+ Exam Vital Signs Temp Pulse Resp BP Pulse Ox O2 Del Method 98.2 F 70 18 139/84 H 98 Room Air 11/24/24 08:00 11/24/24 08:00 11/24/24 08:00 11/24/24 08:00 11/24/24 08:00 11/24/24 08:00 Constitutional Constitutional: no acute distress Routine HEENT Exam Head: Present normocephalic and atraumatic Eye: Present EOMI and PERRL ENT: Present mucous membranes moist Routine Neck Exam Neck: Present supple and trachea midline Routine Respiratory Exam Respiratory: Present chest non-tender, lungs clear, normal breath sounds and no resp distress Routine Cardiovascular Exam Cardiovascular: Present RRR Routine Abdominal Exam Abdominal: Present soft and normoactive bowel sounds Routine Extremities Exam Extremities: Present full ROM Routine Skin Exam Skin: Present intact, dry and warm Routine Neurological Exam Neurological: Present alert, oriented X3 and CN II-XII intact Routine Psychiatric Exam Psychiatric: Present normal affect and normal thought process Objective Labs 11/23/24 17:01 11/23/24 08:56 Labs: Laboratory Results - last 24 hr 11/23/24 11/23/24 11/23/24 08:56 11:29 13:11 WBC RBC Hgb Hct MCV MCH MCHC RDW Std Deviation Plt Count Neut % (Auto) Lymph % (Auto) [place] % (Auto) Eos % (Auto) Baso % (Auto) Neut # (Auto) Lymph # (Auto) [place] # (Auto) Eos # (Auto) Baso # (Auto) Immature Gran # (Auto) Absolute Nucleated RBC Immature Gran % Nucleated RBC % PT 10.2 INR 0.9 APTT 25.8 Fibrinogen 600 H Sodium 140 Potassium 4.0 Chloride 107 Carbon Dioxide 19.8 L Anion Gap 13 BUN < 5 L Creatinine 0.5 L Estim Creat Clear Calc 183.7 eGFR > 60 BUN/Creatinine Ratio 10 L Glucose 82 Calculated Osmolality 275 Uric Acid 4.7 Calcium 9.6 Corrected Calcium 10.1 Total Bilirubin 0.5 AST 45 H ALT 74 H Alkaline Phosphatase 290 H Lactate Dehydrogenase 224 Total Protein 5.7 Albumin 3.4 L Globulin 2.3 Albumin/Globulin Ratio 1.5 Ur Collection Type Clean Catch Urine Color Lt-Yellow Urine Clarity Clear Urine pH 7.5 H Ur Specific [place] 1.009 Urine Protein Negative Urine Glucose (UA) Negative Urine Ketones 1+ A Urine Blood Negative Urine Nitrite Negative Urine Bilirubin Negative Urine Urobilinogen (Auto) Negative Ur Leukocyte Esterase Negative Urine RBC 4 H Urine WBC < 1 Ur Squamous Epith Cells < 1 Urine Bacteria None Urine Opiates Screen Negative U Amphetamin/Meth Scrn Negative U Cocaine Metab Screen Negative U Marijuana (THC) Screen Negative Syphilis Serology Chlam trachomat DNA PCR Negative Hep Bs Antigen N.gonorrhoeae DNA (PCR) Negative Rubella IgG Antibody Trichomonas DNA Probe Negative Blood Type O Positive Antibody Screen NEGATIVE Crossmatch See Detail Blood Bank Wristband ID Yes 11/23/24 17:01 WBC 13.7 H D RBC 3.91 L Hgb 12.2 Hct 34.8 L MCV 89 MCH 31.2 MCHC 35.1 RDW Std Deviation 39.5 Plt Count 164 Neut % (Auto) 86 H Lymph % (Auto) 9 L [place] % (Auto) 5 Eos % (Auto) 0 Baso % (Auto) 0 Neut # (Auto) 11.8 H Lymph # (Auto) 1.2 [place] # (Auto) 0.6 Eos # (Auto) 0.0 Baso # (Auto) 0.0 Immature Gran # (Auto) 0.06 H Absolute Nucleated RBC 0.00 Immature Gran % 0 Nucleated RBC % 0 PT INR APTT Fibrinogen Sodium Potassium Chloride Carbon Dioxide Anion Gap BUN Creatinine Estim Creat Clear Calc eGFR BUN/Creatinine Ratio Glucose Calculated Osmolality Uric Acid Calcium Corrected Calcium Total Bilirubin AST ALT Alkaline Phosphatase Lactate Dehydrogenase Total Protein Albumin Globulin Albumin/Globulin Ratio Ur Collection Type Urine Color Urine Clarity Urine pH Ur Specific [place] Urine Protein Urine Glucose (UA) Urine Ketones Urine Blood Urine Nitrite Urine Bilirubin Urine Urobilinogen (Auto) Ur Leukocyte Esterase Urine RBC Urine WBC Ur Squamous Epith Cells Urine Bacteria Urine Opiates Screen U Amphetamin/Meth Scrn U Cocaine Metab Screen U Marijuana (THC) Screen Syphilis Serology Nonreactive Chlam trachomat DNA PCR Hep Bs Antigen Non Reactive N.gonorrhoeae DNA (PCR) Rubella IgG Antibody Reactive (Immune) Trichomonas DNA Probe Blood Type Antibody Screen Crossmatch Blood Bank Wristband ID Assessment & Plan Problem List (1) Cholestasis during : Status: Acute Assessment and plan: Continue ursodiol (2) delivery delivered: Status: Acute Assessment and plan: Routine care (3) Placental abruption in third trimester: Status: Acute Assessment and plan: Monitor for signs of ongoing hemorrhage Time Spent With Patient Time: Total time spent is greater than 50% in coordination of care (as documented) at patient's floor/unit and/or counseling patient:
[2024-11-24 11:40] VITALS: BP 131/83; PULSE 73; RESP 18; TEMP 36.6; O2SAT 98
[2024-11-24] MEDS: IBUPROFEN TAB 400 MG TABLET 800 MG PO (13:42)
[2024-11-24 19:52] VITALS: BP 123/80; PULSE 76; RESP 16; TEMP 37; O2SAT 98
[2024-11-24] MEDS: SIMETHICONE 80 MG CHEW PO (19:58)
[2024-11-24] MEDS: ACETAMINOPHEN 325 MG TABLET 650 MG PO (19:58)
[2024-11-25 04:16] VITALS: BP 131/82; PULSE 82; RESP 18; TEMP 36.9; O2SAT 96
[2024-11-25] MEDS: IBUPROFEN TAB 400 MG TABLET 800 MG PO (04:25)
[2024-11-25] MEDS: SIMETHICONE 80 MG CHEW PO (04:26)
[2024-11-25 07:50] VITALS: BP 129/83; PULSE 76; RESP 16; TEMP 36.6
[2024-11-25 11:14] LABS: Basophils # (Auto) 0.0 Thou/mm3 (0.0-0.2); Basophils % (Auto) 0 % (0-2.5); Eosinophils # (Auto) 0.0 Thou/mm3 (0.0-0.5); Eosinophils % (Auto) 0 % (0-10); Hematocrit 27.6 % (36.0-46.0); Hemoglobin 9.4 g/dL (12.0-16.0); Immature Granulocytes Auto 0.04 Thou/mm3 (0.00-0.00); Lymphocytes # (Auto) 1.7 Thou/mm3 (1.0-4.8); Lymphocytes % (Auto) 17 % (10-50); Mean Corpuscular HGB Conc 34.1 g/dl (31.0-37.0); Mean Corpuscular Hemoglobin 30.8 pg (25.0-35.0); Mean Corpuscular Volume 91 fL (80-100); Monocytes # (Auto) 0.4 Thou/mm3 (0.0-0.8); Monocytes % (Auto) 4 % (0-12); Neutrophils # (Auto) 8.2 Thou/mm3 (1.8-7.7); Neutrophils % (Auto) 79 % (37-80); Nucleated Red Blood Cell # 0.00 Thou/mm3 (0.00-0.00); Nucleated Red Blood Cell % 0 /100 WBC (0); Platelet Count 188 Thou/mm3 (140-440); RDW Standard Deviation 42.4 fL (36.4-46.3); Red Blood Count 3.05 Miln/mm3 (4.00-5.20); White Blood Count 10.4 Thou/mm3 (3.6-11.0)
[2024-11-25] MEDS: HYDROcodone/APAP 5/325 TABLET 2 TAB PO (12:58)
[2024-11-25 13:06] LABS: HIV (1&2) Antibody Rapid Non-Reactive
[2024-11-25 15:36] VITALS: BP 137/78; PULSE 74; RESP 16; TEMP 36.9
--- NOTE | 2024-11-25 17:48 | ESPR_ITS ---
Subjective Subjective Interval history: Patient is a 24-year-old -1-0-1 postop day 2 status post primary for heavy bleeding at 36-4/7 weeks with abruption. Patient is resting comfortably in bed today. She is ambulating, tolerating a general diet voiding passing flatus and having bowel movements. She desires to go home. Her predelivery hemoglobin was 11.9 postdelivery hemoglobin 9.4. Patient sees a provider in [place] and can follow-up with this doctor she will be discharged home today postop day 2 in stable condition. Exam Vital Signs Temp Pulse Resp BP Pulse Ox O2 Del Method 98.5 F 74 16 137/78 H 96 Room Air 11/25/24 15:36 11/25/24 15:36 11/25/24 15:36 11/25/24 15:36 11/25/24 04:16 11/25/24 15:36 Narrative Exam Patient is alert and oriented x 3 wearing her own pajamas resting comfortably in bed abdomen is soft fundus is firm at umbilicus incisions clean dry and intact Objective Labs 11/25/24 07:51 11/23/24 08:56 Labs: Laboratory Results - last 24 hr 11/25/24 11/25/24 07:31 07:51 WBC 10.4 RBC 3.05 L Hgb 9.4 L D Hct 27.6 L MCV 91 MCH 30.8 MCHC 34.1 RDW Std Deviation 42.4 Plt Count 188 Neut % (Auto) 79 Lymph % (Auto) 17 [place] % (Auto) 4 Eos % (Auto) 0 Baso % (Auto) 0 Neut # (Auto) 8.2 H Lymph # (Auto) 1.7 [place] # (Auto) 0.4 Eos # (Auto) 0.0 Baso # (Auto) 0.0 Immature Gran # (Auto) 0.04 H Absolute Nucleated RBC 0.00 Immature Gran % 0 Nucleated RBC % 0 HIV 1&2 Antibody Rapid Non-Reactive Assessment & Plan Problem List (1) Cholestasis during : Status: Acute (2) delivery delivered: Problem details: Discharge instructions given. No heavy lifting intercourse tampons or douching for 6 weeks no heavy exercise x 6 weeks Status: Acute (3) Placental abruption in third trimester: Status: Acute Time Spent With Patient Time: Total time spent is greater than 50% in coordination of care (as documented) at patient's floor/unit and/or counseling patient: Time with patient: less than 15 minutes
--- NOTE | 2024-11-25 17:51 | ESDS_ITS ---
DS: Providers Provider Date of admission: 11/23/24 09:02 Primary care physician: Physician No Primary/Family Admitting Provider: Colby Manuel MD Attending Provider on Admission: Silvestre Fajardo MD Consults: 11/23/24 12:32 Referral Routine Comment: Attending Provider on DC: Molly Parker MD ([facility]) Discharging Provider: Molly Parker MD ([facility]) Anticipated date of discharge: 11/25/24 DS: Diagnosis Discharge Diagnosis (1) delivery delivered: Status: Acute Assessment & Plan: Discharge instructions given. No heavy lifting intercourse tampons douching x 6 weeks no heavy exercise x 6 weeks. (2) Placental abruption in third trimester: Status: Acute Assessment & Plan: Patient is status postprimary low-transverse section (3) Cholestasis during : Status: Acute Assessment & Plan: Patient has cholestyramine as needed Problem List Completed Was Problem List Reviewed/Reconciled?: Yes Summary/Hosp Course Brief History: 24-year-old 1 para 0 with intrauterine at 36 weeks and 4 days by history with undocumented care presents to maternal unit complaining of vaginal bleeding and abdominal pain starting at 0700 today. She has contractions every 1 minute on the external monitor with cervical exam 1/60%/-3/vertex/I with vaginal bleeding noted. Abdomen is tense between contractions. Patient reports 8 out of 10 pain. Has care with Dr. Rider which is undocumented at this time reports no history of placenta previa. She had a visit last week and her care started in the first trimester. Denies any problem in her . Please see history and physical for further details. Patient was admitted by Dr Manuel. Patient underwent an uncomplicated primary section for bleeding remote from delivery with placental abruption. Her delivery was 11/23 at about 10:00 in the morning. Please see op report for further details. Peripartum Data Delivery Method: Low Transverse Episiotomy Description: None Procedures: Procedures Operation Date: 11/23/24 09:45 Actual Procedure Side Surgeon p in OB Bilateral Colby Manuel MD complications: none Status at Discharge Cognitive/behavioral status at discharge: Patient is alert and oriented x 3 in no apparent distress Functional status at discharge: independent ambulation Overall status at discharge: patient is progressing back to baseline Time Spent with Patient Time attestation: Total time spent providing and/or coordinating discharge services: Time spent: Less than 30 minutes Specific discharge activities: Pelvic rest x 6 weeks no intercourse tampons douching x 6 weeks no heavy exercise or heavy lifting x 6 weeks. Follow-up with your doctor in [place] in 1 to 2 weeks to check incision Exam Vital Signs Temp Pulse Resp BP Pulse Ox O2 Del Method 98.5 F 74 16 137/78 H 96 Room Air 11/25/24 15:36 11/25/24 15:36 11/25/24 15:36 11/25/24 15:36 11/25/24 04:16 11/25/24 15:36 Narrative Exam Patient is alert and oriented x 3 in no apparent distress. Fundus is firm. Incision is clean dry and intact. Extremities show 1+ pitting edema of ankles. No erythema no pain Discharge Plan Plan Patient Disposition: HOME (Self Care) Patient condition on transfer: Stable Prescriptions/Referrals Prescriptions/Med Rec: New ibuprofen 800 mg tablet 800 mg PO Q6H PRN (Reason: pain) Qty: 30 0RF hydrocodone-acetaminophen 5-325 mg tablet 1 tab PO Q6H MDD 4 PRN (Reason: pain) Qty: 20 0RF ursodiol 300 mg capsule 300 mg PO BID Qty: 20 0RF No Action metoclopramide HCl [Reglan] 10 mg tablet 10 mg PO Q6H PRN (Reason: nausea and vomiting) Qty: 30 0RF loratadine 10 mg tablet 10 mg PO QDAY MDD 10 mg PRN (Reason: pruritis) Qty: 20 0RF metoclopramide HCl [Reglan] 10 mg tablet 10 mg PO Q8H PRN (Reason: nausea and vomiting) Qty: 20 0RF nitrofurantoin macrocrystal 100 mg capsule 100 mg PO BID Qty: 14 0RF Rx Instructions: must administer with a meal/food Referrals: No Primary/Family,Physician [Primary Care Provider] - Patient/Caregiver Discharge Instructions Discharge Activity: activity as tolerated Other Discharge Activity Instructions:: Follow up with Dr Rider in 1 week. No heavy lifting, intercourse, tampons, douching, swimming pools, heavy exercise x [address] Rider with fevers, heavy vaginal bleeding or severe depression. Call Dr. Garner with any concerns about breast- feeding. Other Discharge Diet Instructions: General Diet as tolerated Education Materials: : Caring for Yourself, C Section Dc, Change Expect Parents Print Language: British Activity Restrictions/Additional Instructions: Follow up with Dr Rider in 1 week. Stand Alone Forms: Lyndsey Award Info., Patient Portal Info Letter Discharge Order Discharge Orders: Discharge (Routine); Ordered 11/25/24 Ordered By: Molly Parker ([facility]) Planned Discharge Date 11/25/24 (3) Cholestasis during Qualifiers: Trimester: third trimester Qualified Code(s): O26.643 - Intrahepatic cholestasis of , third trimester
== END 2024-11-25 19:15 | disposition home or self-care (01) | DRG 540 ==
LOC: S4SX 08:05 → S4NX 09:35 → S4SX 10:00
PROVIDERS: Obstetrics & Gynecology; Admitting Provider Specialist; Visit Provider Obstetrics & Gynecology
PROC: 10D00Z1 Extraction of Products of Conception, Low, Open Approach (ICD-10-PCS; CPT 59514; principal; 2024-11-23 09:30)
DX: O45.93 Premature separation of placenta, unspecified, third trimester (principal); Z3A.36 36 weeks gestation of pregnancy; O77.0 Labor and delivery complicated by meconium in amniotic fluid; Z37.0 Single live birth; O62.2 Other uterine inertia; O26.643 Intrahepatic cholestasis of pregnancy, third trimester; O98.32 Other infections with a predominantly sexual mode of transmission complicating childbirth; A59.9 Trichomoniasis, unspecified; K76.89 Other specified diseases of liver
CPT/HCPCS: 36415; 59025; 80053; 80307; 81001; 83615; 84550; 85025; 85384; 85610; 85730; 86703; 86762; 86780; 86850; 86900; 86901; 86923; 87340; 87491; 87591; 87661; A4314; A4649; J0689; J1100; J1885; J2250; J2274; J2405; J2590; J3010; J3490; J7120; A9270; J2270